=== PATIENT | female | born 1965 | race Caucasian/White ===

== ENCOUNTER → 2019-05-13 11:27 | Outpatient (CLI) | payer BC, SELFPAY ==
--- NOTE | 2019-05-13 11:47 | RAD_ITS ---
STUDY: X-RAY - RIGHT HAND REASON FOR EXAM: Female, 54 years old. Pain at the base of the thumb, no injury TECHNIQUE: 3 view(s) of the hand. COMPARISON: None. FINDINGS: No fracture or dislocation. There is mild first carpal metacarpal joint space narrowing and subchondral sclerosis. The soft tissue structures are unremarkable. RAD/Hand Min 3 Views IMPRESSION: Degenerative changes of the first carpometacarpal joint. No fracture or dislocation. Electronically Signed: Dilma Newman, at 20:39 EDT Tel , Service support ,
[2019-05-13 12:12] LABS: Cholesterol 154 mg/dL (200); Glucose 94 mg/dL (74-106); High Density Lipoprotein 84 mg/dL; Triglycerides 62 mg/dL; Very Low Density Lipoprotein 12 mg/dL (5-40)
== END ==
PROVIDERS: Family Provider Family Medicine; PCP Family Medicine; Referring Provider Family Medicine; Visit Provider Family Medicine
DX: Z13.220 Encounter for screening for lipoid disorders (principal); M79.644 Pain in right finger(s); Z83.3 Family history of diabetes mellitus
CPT/HCPCS: 36415; 73130; 80061; 82947